=== PATIENT | female | born 1950 | race Hispanic/Latino ===

== ENCOUNTER 2023-10-08 05:40 | Observation (INO) | payer MEDICARE ==
[2023-10-06 12:30] LABS: BASOPHILS # (AUTO) 0.1 (0.0-0.1); BASOPHILS % 1.1 % (0.0-1.0); EOSINOPHILS # (AUTO) 0.1 (0.0-0.4); EOSINOPHILS % 2.1 % (0.0-6.0); HEMATOCRIT 39.2 % (34.2-44.1); LYMPHOCYTES # (AUTO) 2.1 (1.0-3.2); LYMPHOCYTES % 33.8 % (18.0-39.1); MEAN CORPUSCULAR HEMOGLOBIN 32.8 pg (28-32); MEAN CORPUSCULAR HGB CONC 35.7 g/dL (31-35); MEAN CORPUSCULAR VOLUME 91.8 fL (81-99); MONOCYTES # (AUTO) 0.5 (0.2-0.8); MONOCYTES % 7.3 % (4.4-11.3); NEUTROPHILS # (AUTO) 3.4 (2.1-6.9); PLATELET COUNT 204 x10e3/uL (140-360); RED BLOOD COUNT 4.27 x10e6/uL (3.6-5.1); RED CELL DISTRIBUTION WIDTH 13.8 % (11.7-14.4); WHITE BLOOD COUNT 6.13 x10e3/uL (4.8-10.8)
[2023-10-06 12:49] LABS: INR 0.94; PROTHROMBIN TIME 12.8 seconds (11.9-14.5)
[2023-10-06 12:50] LABS: PARTIAL THROMBOPLASTIN TIME 33.2 seconds (23.8-35.5)
[2023-10-06 12:56] LABS: ANION GAP 14.8 mmol/L (8-16); CALCIUM 9.5 mg/dL (8.4-10.2); CREATININE, SERUM 0.77 mg/dL (0.57-1.11); POTASSIUM 3.8 mmol/L (3.5-5.1)
[~2023-10-08] VITALS: Ht 154.9 cm; Wt 74.8 kg
[~2023-10-08 05:40] MED LIST: CRESTOR10 MG PO; FLONASE ALLERG9.9 ML INH; LEVOCETIRIZINE D5 MG; LEVOTHYROXINE88 MCG PO; MELOXICAM7.5 MG PO; MONTELUKAST SOD10 MG PO; MULTI-VITAMIN1 EACH PO; NOVOLOG MI100 UNIT/1 SC; OZEMPIC2 MG/0.75; PANTOPRAZOLE SO40 MG PO; PROBIOTIC & AC1 EACH PO; SYNJARDY XR 101 EACH; TRESIBA FL200 UNIT/1 SQ; VITAMIN A3000 MCG; VITAMIN B-121000 MCG PO; VITAMIN C1000 MG PO; VITAMIN D31 ML; VITAMIN D31250 MCG; ZETIA10 MG PO; [UNRECOGNIZED DRUG - OTHER]
[2023-10-08] MEDS ORDERED: LIDOCAINE 1% W/EPINEPHRINE 20 ML VIAL ONE (06:43)
[2023-10-08] MEDS ORDERED: THROMBIN FOR SOLN 5,000 UNIT VIAL ONE (06:43)
[2023-10-08] MEDS ORDERED: Vancomycin IV 1 GM VIAL ONE (06:43)
[2023-10-08] MEDS: CEFAZOLIN SODIUM 2 GM ONE (06:50)
[2023-10-08] MEDS: LACTATED RINGER'S 1,000 ML ONE (06:50)
[2023-10-08] MEDS ORDERED: HYDROCODON-ACE1 EA12 PO (09:54)
[2023-10-08] MEDS ORDERED: PROMETHAZINE HCL (IM) 25 MG/ML VIAL IM PRN (10:00)
[2023-10-08] MEDS ORDERED: DEXTROSE 50% SYRINGE 50 ML IV PRN (10:00)
[2023-10-08] MEDS ORDERED: MAGNESIUM/ALUMINUM/SIMETHICONE 30 ML UDC PO PRN (10:00)
[2023-10-08] MEDS ORDERED: ACETAMINOPHEN 325 MG TAB PO PRN (10:00)
[2023-10-08] MEDS ORDERED: ZOLPIDEM TARTRATE 5 MG TAB PO PRN (10:00)
[2023-10-08] MEDS: ONDANSETRON HCL INJ 2MG/ML 2ML 2 MG/ML VIAL IV PRN (10:02)
[2023-10-08] MEDS: FENTANYL CITRATE/PF 100MCG/2 ML INJ ONE (10:26)
[2023-10-08] MEDS: INSULIN REGULAR, HUMAN 100 UNIT/1 ML SQ SCH (11:30)
[2023-10-08 12:13] VITALS: BP 128/72; PULSE 74; RESP 19; TEMP 97.4; O2SAT 97
[2023-10-08 14:24] VITALS: BP 128/72; PULSE 74; RESP 19; TEMP 97.4; O2SAT 97
[2023-10-08] MEDS ORDERED: FAMOTIDINE 20 MG/2 ML VIAL IV ONE (14:27)
[2023-10-08] MEDS ORDERED: METOCLOPRAMIDE HCL 10 MG/2ML VIAL ONE (14:27)
[2023-10-08] MEDS ORDERED: PROPOFOL IV EMULSION 10 MG/ML 20 ML VIAL ONE (14:27)
[2023-10-08] MEDS ORDERED: SUGAMMADEX SODIUM 200 MG/2 ML VIAL IV ONE (14:27)
[2023-10-08] MEDS ORDERED: LABETALOL HCL 5 MG/ML 20ML VIAL ONE (14:27)
[2023-10-08] MEDS ORDERED: ROCURONIUM BROMIDE 10 MG/ML 5ML VIAL IV ONE (14:27)
[2023-10-08] MEDS ORDERED: ONDANSETRON HCL INJ 2MG/ML 2ML 2 MG/ML VIAL ONE (14:27)
[2023-10-08] MEDS ORDERED: ACETAMINOPHEN 1000 MG/100 ML IV ONE (14:27)
[2023-10-08] MEDS ORDERED: DEXMEDETOMIDINE HCL 200 MCG/2 ML VIAL ONE (14:27)
[2023-10-08] MEDS ORDERED: LIDOCAINE HCL 2% LOCAL INJ 5 ML SDV VIAL INJ ONE (14:27)
[2023-10-08] MEDS ORDERED: SODIUM CHLORIDE 0.9% INJ 100 ML BAG ONE (14:27)
[2023-10-08] MEDS ORDERED: SEVOFLURANE INHAL SOLN 250 ML PEN BTL ONE (14:27)
[2023-10-08] MEDS: LACTATED RINGER'S 1,000 ML IV SCH (14:39)
[2023-10-08] MEDS: MORPHINE SULFATE 5 MG/ML VIAL IM PRN (14:43)
[2023-10-08 16:47] VITALS: BP 105/53; PULSE 72; RESP 19; TEMP 97.7; O2SAT 97
[2023-10-08] MEDS ORDERED: FENTANYL CITRATE/PF 100MCG/2 ML INJ ONE (16:54)
[2023-10-08] MEDS ORDERED: NON-FORMULARY MEDICATION (Fluticasone Propionate* (Flonase Allergy Relief*) 2 EACH) INH SCH (17:00)
[2023-10-08] MEDS: INSULIN DEGLUDEC 24 UNIT SC SCH (17:00)
[2023-10-08] MEDS: FLUTICASONE PROPIONATE NASAL SPRAY NS SCH (17:42)
[2023-10-08] MEDS: INSULIN ASPART 70/30 100 UNITS/ML VIAL SC SCH (17:59)
[2023-10-08 19:53] VITALS: BP 105/53; PULSE 72; RESP 19; TEMP 97.7; O2SAT 97
[2023-10-08 20:00] VITALS: BP 122/62; PULSE 74; RESP 17; TEMP 98.3; O2SAT 98
[2023-10-08] MEDS: SIMVASTATIN 20 MG TAB PO SCH (21:37)
[2023-10-09] VITALS: BP 137/72; PULSE 78; RESP 17; TEMP 98.6; O2SAT 98
[2023-10-09] MEDS: HYDROMORPHONE 2MG/ML IV PRN (02:40)
[2023-10-09 04:00] VITALS: BP 135/54; PULSE 74; RESP 20; TEMP 98.1; O2SAT 99
[2023-10-09] MEDS: LEVOTHYROXINE SODIUM 88 MCG TAB PO SCH (05:42)
[2023-10-09] MEDS: LACTOBACILLUS ACIDOPHILUS CAPSULE PO SCH (08:14)
[2023-10-09] MEDS: EZETIMIBE 10 MG TAB PO SCH (08:14)
[2023-10-09] MEDS: MONTELUKAST SODIUM 10 MG TAB PO SCH (08:14)
[2023-10-09] MEDS: MELOXICAM 7.5 MG TAB PO SCH (08:14)
[2023-10-09] MEDS: PANTOPRAZOLE SOD 40 MG TABEC PO SCH (08:15)
[2023-10-09] MEDS: MULTIVITAMINS/MINERALS TAB PO SCH (08:15)
[2023-10-09] MEDS: ASCORBIC ACID 500 MG TAB PO SCH (08:15)
[2023-10-09] MEDS: CYANOCOBALAMIN 1,000 MCG TAB PO SCH (08:15)
[2023-10-09 08:41] VITALS: BP 150/78; PULSE 76; RESP 16; TEMP 98.2; O2SAT 98
[2023-10-09] MEDS: OXYCODONE/ACETAMINOPHEN 5-325 1 EACH TABLET PO PRN (11:22)
[2023-10-09] MEDS: CARISOPRODOL 350 MG TAB PO PRN (11:22)
[2023-10-09 12:09] VITALS: BP 139/77; PULSE 79; RESP 18; TEMP 98; O2SAT 98
== END 2023-10-09 13:35 | disposition home or self-care (01) ==
LOC: OR 05:40 → PACU V 09:51 → MED/SURG3 11:20
PROVIDERS: ADMIT Neurological Surgery; ATTEND Neurological Surgery
DX: M47.22 Other spondylosis with radiculopathy, cervical region (principal); M50.122 Cervical disc disorder at C5-C6 level with radiculopathy; M25.78 Osteophyte, vertebrae; E11.9 Type 2 diabetes mellitus without complications; Z79.85 Long-term (current) use of injectable non-insulin antidiabetic drugs; Z79.84 Long term (current) use of oral hypoglycemic drugs; Z79.4 Long term (current) use of insulin; E78.5 Hyperlipidemia, unspecified; G47.33 Obstructive sleep apnea (adult) (pediatric); E03.9 Hypothyroidism, unspecified; Z85.42 Personal history of malignant neoplasm of other parts of uterus; Z90.710 Acquired absence of both cervix and uterus; Z01.810 Encounter for preprocedural cardiovascular examination; Z01.812 Encounter for preprocedural laboratory examination; Z01.818 Encounter for other preprocedural examination; Z79.899 Other long term (current) drug therapy; Z79.52 Long term (current) use of systemic steroids
CPT/HCPCS: 20931; 22551; 22552; 22845; 36415 ×3; 71046; 72040; 76000; 80048; 82948 ×2; 85025; 85610; 85730; 86850; 86900; 88304; 93005; C1768; G0378 ×2; J0131; J0690; J1815; J2001; J2270; J2405; J2550; J2704; J2765; J3010; J3370; J3490; J7050; J7121